=== PATIENT | male | born 1945 | race Caucasian/White ===

== ENCOUNTER 2018-05-21 07:41 | Day surgery (SDC) | payer MEDICARE, OTHER ==
[~2018-05-21 07:41] MED LIST: DIPHENHYDRAMINE HCL 50 MG/ML VIAL ONE; EPINEPHRINE INJ 1 MG/10 ML DISP.SYRIN ONE; FLUMAZENIL INJ 0.5 MG/5 ML VIAL ONE; GLUCAGON,HUMAN RECOMB 1 MG INJ ONE; NALOXONE HCL INJ/PF 0.4 MG/1 ML SDV ONE; ONDANSETRON HCL INJ/PF 4 MG/2 ML SDV ONE
[2018-05-21] MEDS: MIDAZOLAM 2 MG/2 ML INJ ONE ×4 (08:11→08:19)
[2018-05-21] MEDS: FENTANYL CITRATE INJ/PF 100 MCG/2 ML AMPUL ONE ×3 (08:13→08:24)
--- NOTE | 2018-05-21 09:00 | Operative Report ---
Nonrecallable Operative Report DATE OF SURGERY: 05/21/18 PREOPERATIVE DIAGNOSIS: colonoscopy POSTOPERATIVE DIAGNOSIS: colonoscopy OPERATION: colonoscopy SURGEON: NEYDA BLAS ANESTHESIA: Moderate Sedation TISSUE REMOVED OR ALTERED: polyps x 2 COMPLICATIONS: none ESTIMATED BLOOD LOSS: 0 INTRAOPERATIVE FINDINGS: polyps x2 splenic flexure PROCEDURE: see dictation
--- NOTE | 2018-05-21 09:01 | Discharge Summary ---
Discharge Summary (SDC) - Discharge Final Diagnosis: colonoscopy Date of Surgery: 05/21/18 Condition: Good Referrals: AUBRIE PINK MD [Primary Care Provider] - Discharge Activity: Activity As Tolerated Report the Following to Your Physician Immediately: Shortness of Breath, Nausea, Vomiting, Increase in Pain
[2018-05-21 10:14] VITALS: BP 157/97
--- NOTE | 2018-05-21 10:34 | OPERATIVE REPORT E ---
Operative Report NAME: LUCIUS PADILLA : 1945 AGE: 73Y DATE OF SURGERY: 05/21/2018 ROOM: PREOPERATIVE DIAGNOSIS: Elective colonoscopy. POSTOPERATIVE DIAGNOSIS: Elective colonoscopy. OPERATIVE PROCEDURE: Colonoscopy. SURGEON: NEYDA BLAS M.D. PROCEDURE: The patient was brought to the endoscopy suite awake, alert, in stable condition, and given IV sedation. After an appropriate timeout, the patient was placed in a left lateral decubitus position and an Olympus colonoscope was passed easily into the rectum, advanced up the descending colon, past the splenic flexure, through the transverse colon, past the hepatic flexure, down the ascending colon to the cecum. The cecum was visualized and ileocecal valve was seen. We then slowly withdrew the scope. The ascending colon appeared to be normal as was the area of a previous polyp of the hepatic flexure. There was no evidence of any polyps in the hepatic flexure. As we traversed the transverse colon, we came to the splenic flexure. There were 2 separate polyps about 1-2 cm apart just in the proximal splenic flexure. These were both piecemeal biopsied and removed. We then slowly withdrew the scope down the ascending colon, through the sigmoid colon and rectum. There were no other mucosal abnormalities or polyps. The scope was removed. We also did visualize a number of internal and external hemorrhoids. After the scope was removed, the patient was turned back in a supine position and was then transferred to recovery in stable condition. DICTATING PHYSICIAN: NEYDA BLAS M.D. [id number] PHY#: [id number] ID: [id number] JOB#: [id number] ACCT: [id number] cc:NEYDA BLAS M.D. >
--- NOTE | 2018-05-21 22:13 | OPERATIVE REPORT E ---
Operative Report NAME: LUCIUS PADILLA : 1945 AGE: 73Y DATE OF SURGERY: 05/21/2018 ROOM: ADDENDUM: -[id number] The patient will be given a follow up appointment with me 1 to 2 weeks after discharge. He will need to have a re-colonoscopy in 5 years. DICTATING PHYSICIAN: NEYDA BLAS M.D. [id number] Y#: [id number] ID: [id number] JOB#: [id number] ACCT: [id number] cc:NEYDA BLAS M.D. >
--- NOTE | 2018-05-21 22:14 | OPERATIVE REPORT E ---
Operative Report NAME: LUCIUS PADILLA : 1945 AGE: 73Y DATE OF SURGERY: 05/21/2018 ROOM: ADDENDUM: Job ID# is [id number] The patient will require a repeat colonoscopy in 5 years. He will be seen back in the clinic in 1 to 2 weeks. DICTATING PHYSICIAN: NEYDA BLAS M.D. [id number] PHY#: [id number] ID: [id number] JOB#: [id number] ACCT: [id number] cc:NEYDA BLAS M.D. >
== END 2018-05-21 10:00 | disposition home or self-care (01) ==
LOC: END 07:41
PROVIDERS: ATTEND Surgery
DX: Z12.11 Encounter for screening for malignant neoplasm of colon (principal); D12.6 Benign neoplasm of colon, unspecified; K64.8 Other hemorrhoids; K64.4 Residual hemorrhoidal skin tags; Z86.010 Personal history of colon polyps; Z85.46 Personal history of malignant neoplasm of prostate; Z87.891 Personal history of nicotine dependence
CPT/HCPCS: 45380; 88305 ×2; J2250; J3010; J0171; J1200; J1610; J2310; J2405; J3490